=== PATIENT | female | born 1955 | race Caucasian/White ===

== ENCOUNTER 2016-06-15 17:37 | Emergency (ER) | payer OTHER, BC ==
[~2016-06-15] VITALS: Ht 165.1 cm; Wt 83.9 kg
[~2016-06-15 17:37] MED LIST: DULO60CA6 PO; IBUP200T77 PO; ONDA4TAB10 SL; OSEL75CA PO
[2016-06-15 19:01] VITALS: BP 125/68
--- NOTE | 2016-06-15 20:07 | PHYS DOC ---
Past Medical History Past Medical History: Depression Additional Past Medical Histor: VIRAL MENINGITIS, CERVICAL HERNIATED DISC, Past Surgical History: , Tonsillectomy Additional Information: Nonsmoker Alcohol Use: Rarely Drug Use: None Adult General Chief Complaint Chief Complaint: TOE PROBLEM HPI HPI Patient is a 61 year old female who presents with left fifth toe pain after stubbing the toe on a board yesterday. She has been ambulatory. She states it is very painful to put her shoe on the foot. Her PCP is Dr. Carol Diaz. Review of Systems Review of Systems Constitutional: Denies fever or chills. [] Musculoskeletal: Denies back pain or joint pain. Reports left fifth toe pain. Integument: Denies rash or skin lesions. Reports left fifth toe ecchymosis. Neurologic: Denies headache, focal weakness or sensory changes. [] Allergies Allergies Allergies Coded Allergies Type Severity Reaction Last Updated Verified No Known Drug Allergies 11/16/14 No Physical Exam Physical Exam Constitutional: Well developed, well nourished, no acute distress, non-toxic appearance. [] HENT: Normocephalic, atraumatic, oropharynx moist. [] Eyes: PERRLA, EOMI, conjunctiva normal, no discharge. [] Skin: Warm, dry, no erythema, no rash. Left fifth toe ecchymosis. Extremities: Left fifth toe tenderness, ROM intact, no edema. 2+ DP pulse. Less than 2 second capillary refill distally. Light touch sensation intact distally. There is no metatarsal tenderness. Neurologic: Alert and oriented X 3, normal motor function, normal sensory function, no focal deficits noted. [] Psychologic: Affect normal, judgement normal, mood normal. [] Current Patient Data Vital Signs Vital Signs Date Time Temp Pulse Resp B/P Pulse Ox O2 Delivery O2 Flow Rate FiO2 06/15/16 19:01 98.1 66 18 100 Room Air 98.1 EKG EKG [] Radiology/Procedures Radiology/Procedures There is a fracture of the proximal phalanx of the left fifth toe. Three-view x- ray of the left foot interpreted by myself. Course & Med Decision Making Course & Med Decision Making Pertinent Labs and Imaging studies reviewed. (See chart for details) Patient presents with left fifth toe pain after stepping on a board. On exam, she is neurovascularly intact without evidence of dislocation. X-ray shows a fracture of the left fifth toe proximal phalanx. She is discharged with a postop shoe. She declines offer for pain medication. She is given a work note for 2 days. Information for orthopedics for follow-up. Return precautions were discussed. She verbalizes understanding and agrees with plan. Dragon Disclaimer Dragon Disclaimer This electronic medical record was generated, in whole or in part, using a voice recognition dictation system. Departure Departure Impression: Primary Impression: Toe fracture, left Disposition: 01 HOME, SELF-CARE Condition: STABLE Referrals: CAROL DIAZ MD (PCP) GENO STEVENSON II, MD Patient Instructions: Toe Fracture, [id number] Additional Instructions: You were seen for a broken toe. Please wear the provided postop shoe for comfort with walking. Please follow-up with the orthopedic doctor listed below if your pain continues or have other complications. Return to emergency department if you have any new or concerning symptoms. Problem Qualifiers Primary Impression: Toe fracture, left Encounter type: initial encounter Toe: lesser toe Fracture type: closed Phalanx: proximal Fracture alignment: nondisplaced Qualified Code: S92.515A - Nondisplaced fracture of proximal phalanx of left lesser toe(s), initial encounter for closed fracture USHA ACOSTA Jun 15, 2016 20:07
--- NOTE | 2016-06-16 08:39 | RAD ---
Left little toe, 3 views, 06/15/2016: History: Injury There is a fracture of the proximal aspect of the proximal phalanx of the little toe. The fracture is slightly comminuted with a fracture line involving its articular surface. There is slight impaction at the fracture site. No other fracture or dislocation is identified. IMPRESSION: Acute fracture of the proximal phalanx of left little toe.
== END 2016-06-15 20:12 | disposition home or self-care (01) ==
LOC: ER 17:37
DX: S92.515A Nondisplaced fracture of proximal phalanx of left lesser toe(s), initial encounter for closed fracture (principal); W22.8XXA Striking against or struck by other objects, initial encounter; Y93.89 Activity, other specified; Y92.89 Other specified places as the place of occurrence of the external cause; Y99.8 Other external cause status
CPT/HCPCS: 73660; 99284

== ENCOUNTER 2016-11-25 19:49 | Emergency (ER) | payer OTHER, BC ==
[2016-11-25] MEDS ORDERED: IPRATRPIUM/ALBUTEROL 0.5/2.5MG 3 ML NEBU. NEB ONE (20:30)
[2016-11-25] MEDS ORDERED: methylPREDNISolone SOD SUCC PF 125 MG/2 ML VIAL. IV ONE (20:30)
[2016-11-25 20:44] VITALS: BP 139/63
[2016-11-25 20:47] LABS: BASO % 0 % (0-3); EOS % 1 % (0-3); HEMATOCRIT 38.6 % (36.0-47.0); HEMOGLOBIN 12.8 g/dL (12.0-15.5); LYMPH # 1.9 x10^3/uL (1.0-4.8); LYMPH % 16 % (24-48); MEAN CORPUSCULAR HEMOGLOBIN 28 pg (25-35); MEAN CORPUSCULAR HGB CONC 33 g/dL (31-37); MEAN CORPUSCULAR VOLUME 85 fL (79-100); MONO % 6 % (0-9); NEUT % 77 % (31-73); PLATELET COUNT 171 x10^3/uL (140-400); RED BLOOD COUNT 4.55 x10^6/uL (3.50-5.40); RED CELL DISTRIBUTION WIDTH 13.8 % (11.5-14.5); WHITE BLOOD COUNT 12.1 x10^3/uL (4.0-11.0)
[2016-11-25 21:03] LABS: CALCIUM 8.3 mg/dL (8.5-10.1); CREATININE 0.8 mg/dL (0.6-1.0); GFR 73.4; POTASSIUM 3.6 mmol/L (3.5-5.1)
[2016-11-25 21:08] LABS: ALBUMIN 3.6 g/dL (3.4-5.0); TOTAL BILIRUBIN 1.1 mg/dL (0.2-1.0); TOTAL PROTEIN 7.3 g/dL (6.4-8.2)
[2016-11-25] MEDS ORDERED: PRED50TA PO (21:30)
[2016-11-25] MEDS ORDERED: PROM5SYR2 PO (21:30)
[2016-11-25] MEDS ORDERED: AMOX500C PO (21:30)
--- NOTE | 2016-11-25 21:31 | PHYS DOC ---
Past Medical History Past Medical History: Depression Additional Past Medical Histor: VIRAL MENINGITIS, CERVICAL HERNIATED DISC, Past Surgical History: , Tonsillectomy Alcohol Use: Rarely Drug Use: None Adult General Chief Complaint Chief Complaint: COUGH HPI HPI Patient is a 61 year old female with a complaint of cough for approximately 3 weeks now. Patient portion of the history depression. Patient is not on any medication. Patient denies any history of hypertension diabetes liver longer kidney problems. Patient has had no surgeries in the past. Patient does not smoke drink or do any drugs. Patient reports a history of viral meningitis. Patient has a adverse reaction to Zithromax. Patient is unsure when her last tetanus shot/pertussis shot was. Patient denies any fevers shakes chills. Patient reports her temperature today was 99.6 which is unusually high for her. Patient does complain of some nausea. Patient denies any abdominal pain dysuria frequency urgency. Patient reports her cough is nonproductive. Patient reports that she has pain with coughing. Seen her physician as of yet. She denies any dysuria frequency or urgency. Review of systems: Constitutional: fever andr chills [] Eyes: Denies change in visual acuity, redness, or eye pain [] All other review systems are negative except as documented in the history of present illness portion. Physical exam: Constitutional: Well developed, well nourished, no acute distress, non-toxic appearance. [] HENT: Normocephalic, atraumatic, bilateral external ears normal, oropharynx moist, no oral exudates, nose normal. [] Eyes: PERRLA, EOMI, conjunctiva normal, no discharge. [] Neck: Normal range of motion, no tenderness, supple, no stridor. [] Cardiovascular:Heart rate regular rhythm, Lungs & Thorax: Bilateral breath sounds clear to auscultation [] Abdomen: Bowel sounds normal, soft, no tenderness, no masses, no pulsatile masses. [] Skin: Warm, dry, no erythema, no rash. [] Back: No tenderness, no CVA tenderness. [] Extremities: No tenderness, no cyanosis, no clubbing, ROM intact, no edema. [] Neurologic: Alert and oriented X 3, normal motor function, normal sensory function, no focal deficits noted. [] Psychologic: Affect normal, judgement normal, mood normal. [] Patient's physical exam was unremarkable. Patient's and expiratory wheezing. Patient's oropharynx is clear. Patient's TMs were normal. Patient had no lower some edema. Patient no other significant abnormalities on exam. Patient's ER workup was significant for a normal chest x-ray. Patient did receive an albuterol treatment here was minimal relief. Patient does have an elevated white count. Assessment and plan Cough 3 weeks. I did discuss with the patient that she actually needs to see her primary care physician for further evaluation of her chronic cough. Given her elevated white count and her persistent cough for 3 weeks we will initiate amoxicillin to see if that might help. Patient also be given a prescription for prednisone in case it's allergic reaction as well as Phenergan with codeine. Patient is requesting a note for work for tomorrow because she feels too fatigued to her work. Patient will be discharged home in stable condition with strict instructions to follow-up as an outpatient. Current Medications Current Medications Current Medications Medications (Trade) Dose Ordered Sig/Ari Start Time Stop Time Status Last Admin Dose Admin Albuterol/ Ipratropium (Duoneb) 3 ml 1X ONCE 11/25/16 20:30 11/25/16 20:31 DC 11/25/16 20:30 3 ML Methylprednisolone Sodium Succinate (SOLU-Medrol 125MG VIAL) 125 mg 1X ONCE 11/25/16 20:30 11/25/16 20:31 DC 11/25/16 20:41 125 MG Allergies Allergies Allergies Coded Allergies Type Severity Reaction Last Updated Verified No Known Drug Allergies 11/16/14 No Current Patient Data Vital Signs Vital Signs Date Time Temp Pulse Resp B/P (MAP) Pulse Ox O2 Delivery O2 Flow Rate FiO2 11/25/16 20:44 97 18 139/63 (88) 97 Room Air 11/25/16 20:07 99.6 99.6 Lab Values Laboratory Tests Test 11/25/16 20:40 White Blood Count 12.1 x10^3/uL (4.0-11.0) H Red Blood Count 4.55 x10^6/uL (3.50-5.40) Hemoglobin 12.8 g/dL (12.0-15.5) Hematocrit 38.6 % (36.0-47.0) Mean Corpuscular Volume 85 fL (79-100) Mean Corpuscular Hemoglobin 28 pg (25-35) Mean Corpuscular Hemoglobin Concent 33 g/dL (31-37) Red Cell Distribution Width 13.8 % (11.5-14.5) Platelet Count 171 x10^3/uL (140-400) Neutrophils (%) (Auto) 77 % (31-73) H Lymphocytes (%) (Auto) 16 % (24-48) L Monocytes (%) (Auto) 6 % (0-9) Eosinophils (%) (Auto) 1 % (0-3) Basophils (%) (Auto) 0 % (0-3) Neutrophils # (Auto) 9.2 x10^3uL (1.8-7.7) H Lymphocytes # (Auto) 1.9 x10^3/uL (1.0-4.8) Monocytes # (Auto) 0.8 x10^3/uL (0.0-1.1) Eosinophils # (Auto) 0.1 x10^3/uL (0.0-0.7) Basophils # (Auto) 0.0 x10^3/uL (0.0-0.2) Sodium Level 136 mmol/L (136-145) Potassium Level 3.6 mmol/L (3.5-5.1) Chloride Level 102 mmol/L (98-107) Carbon Dioxide Level 24 mmol/L (21-32) Anion Gap 10 (6-14) Blood Urea Nitrogen 10 mg/dL (7-20) Creatinine 0.8 mg/dL (0.6-1.0) Estimated GFR (Cockcroft-Gault) 73.4 BUN/Creatinine Ratio 13 (6-20) Glucose Level 120 mg/dL (70-99) H Calcium Level 8.3 mg/dL (8.5-10.1) L Total Bilirubin 1.1 mg/dL (0.2-1.0) H Aspartate Amino Transferase (AST) 15 U/L (15-37) Alanine Aminotransferase (ALT) 27 U/L (14-59) Alkaline Phosphatase 90 U/L (46-116) OL-Skg-S-Type Natriuretic Peptide 73 pg/mL (0-124) Total Protein 7.3 g/dL (6.4-8.2) Albumin 3.6 g/dL (3.4-5.0) Albumin/Globulin Ratio 1.0 (1.0-1.7) Laboratory Tests 11/25/16 20:40 Laboratory Tests 11/25/16 20:40 EKG EKG [] EKG reveals normal sinus rhythm at [address]-T wave abnormalities no evidence of STEMI. Normal intervals. 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 Radiology/Procedures Radiology/Procedures [] Chest x-ray reveals normal heart size. No infiltrates no effusions no pneumothorax no evidence of pneumonia. Interpreted by the ER physician. Course & Med Decision Making Course & Med Decision Making Pertinent Labs and Imaging studies reviewed. (See chart for details) [] Dragon Disclaimer Dragon Disclaimer This electronic medical record was generated, in whole or in part, using a voice recognition dictation system. Departure Departure Impression: Primary Impression: Cough Disposition: 01 HOME, SELF-CARE Condition: IMPROVED Referrals: CAROL DIAZ MD (PCP) Patient Instructions: Cough, Adult Additional Instructions: Please make sure you make an appointment to see her family doctor. You have had a cough now for approximately 3 weeks which is unusual. Things that need to be ruled out include asthma, allergies, cancer, and other causes that can be further explored by a specialist. Scripts Promethazine HCl/Codeine (Prometh-Codein 6.25-10 mg/5 ml) 5 Ml Syrup 10 ML PO Q6HRS Y for COUGH, #120 Prov: MARIOPSA VILLALBA MD 11/25/16 Prednisone (PREDNISONE) 50 Mg Tablet 1 TAB PO DAILY, #5 TAB Prov: MARIPOSA VILLALBA MD 11/25/16 Amoxicillin (AMOXICILLIN) 500 Mg Capsule 1 CAP PO TID, #30 CAP Prov: MARIPOSA VILLALBA MD 11/25/16 MARIPOSA VILLALBA MD Nov 25, 2016 21:31
--- NOTE | 2016-11-26 07:28 | EKG ---
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
--- NOTE | 2016-11-26 07:55 | RAD ---
Indication cough for 2 weeks. Frontal and lateral views of the chest were obtained. Comparison is made to an exam 01/30/2016. The heart and pulmonary vessels appear normal. The lungs are clear. There is no pleural fluid or pneumothorax. There has not been a significant change compared to the previous exam. IMPRESSION: No acute or focal process. No significant change
== END 2016-11-25 21:35 | disposition home or self-care (01) ==
LOC: ER 19:49
DX: R05 Cough (principal); R11.0 Nausea; F32.9 Major depressive disorder, single episode, unspecified
CPT/HCPCS: 36415; 71020; 80053; 83880; 85027; 93005; 94250; 94640; 96374; 99285; J2930; J7620

== ENCOUNTER → 2019-05-22 | Outpatient (CLI) | payer BC ==
[~2019-05-22] MED LIST changes: +AMOX500C PO; +PRED50TA PO; +PROM5SYR2 PO
--- NOTE | 2019-05-22 15:21 | KCIC ---
PROCEDURE: SHOULDER 2+V LEFT STUDY DATE: 05/22/2019 CLINICAL INDICATION / HISTORY: Left rotator cuff tendinitis. TECHNIQUE: AP internal and external rotation views with a Y- view were obtained. COMPARISON: None FINDINGS: No fracture, dislocation or bone destruction is identified. There are mild degenerative changes at the left AC joint. No calcifications are seen in relation to the rotator cuff insertion. There is mild joint space narrowing in the subacromial space. IMPRESSION: Mild acromioclavicular degenerative changes of the left shoulder and joint space narrowing on the subacromial space suggesting rotator cuff pathology. This could be better evaluated with MRI if clinically warranted. Electronically signed by: Linwood Bullock MD (05/22/2019 3:19 PM) [facility]
== END | disposition home or self-care (01) ==
LOC: KCIC 12:15
PROVIDERS: ATTEND Family Medicine
DX: M25.812 Other specified joint disorders, left shoulder (principal); M75.82 Other shoulder lesions, left shoulder
CPT/HCPCS: 73030

== ENCOUNTER → 2020-02-16 | Outpatient (CLI) | payer BC ==
--- NOTE | 2020-02-16 12:33 | KCIC ---
EXAM: Abdomen, 2 views. HISTORY: Pain. Belching. COMPARISON: None. FINDINGS: Frontal upright and supine views of the abdomen are obtained. There is moderate proximal and mid colonic stool. There is no evidence of bowel structure in. There is no free air. IMPRESSION: 1. Moderate proximal and mid colonic stool. 2. Nonobstructive bowel gas pattern. Electronically signed by: Jennie Naylor MD (02/16/2020 12:30 PM) [id number]
== END ==
LOC: KCIC 11:36
PROVIDERS: ATTEND Family Medicine
DX: R14.2 Eructation (principal); R10.9 Unspecified abdominal pain
CPT/HCPCS: 74021